=== PATIENT | male | born 1940 | race Caucasian/White ===

== ENCOUNTER 2018-10-27 12:24 | Day surgery (SDC) | payer MEDICARE ==
[~2018-10-27] VITALS: Ht 175 cm; Wt 88.7 kg
[~2018-10-27 12:24] MED LIST: ASPI325 PO; ASPI81CH PO; FINA5 PO; HYDACE5325; METO50ER PO; RAMI1.25 PO; RAMI5 PO; RAMIPRIL PO; SIMV80 PO
--- NOTE | 2018-10-27 13:19 | NUR ---
Ambulatory in Day Surgery History, Chart, Medications and Allergies reviewed before start of procedure.Patient confirms NPO status and agrees with scheduled surgery. Patient reports completing Chlorhexadine shower X2 prior to admission to hospital.Surgical site prepped with 2% Chlorhexidine cloth wipe.
--- NOTE | 2018-10-27 16:16 | NUR ---
10/27/18 1616 Lilibeth Gallego PT USED RESTROOM PRIOR TO COMING TO OR 4.
[2018-10-28 04:15] LABS: BASOPHILS ABSOLUTE AUTO 0.01 K/mm3 (0.00-0.23); BASOPHILS PERCENT AUTO 0 % (0-2); EOSINOPHILS PERCENT AUTO 0 % (0-6); Hemoglobin 12.8 g/dL (13.5-17.5); IMMATURE GRAN ABSOLUTE AUTO 0.05 K/mm3 (0.00-0.10); IMMATURE GRAN PERCENT AUTO 0 % (0-1); LYMPHOCYTES ABSOLUTE AUTO 0.62 K/mm3 (0.84-5.20); LYMPHOCYTES PERCENT AUTO 5 % (21-46); MONOCYTES ABSOLUTE AUTO 0.52 K/mm3 (0.16-1.47); MONOCYTES PERCENT AUTO 4 % (4-13); Mean Corpuscular HGB 33.3 pg (26.0-34.0); Mean Corpuscular HGB Conc 34.6 g/dL (31.5-36.5); Mean Corpuscular Volume 96 fL (80-100); Mean Platelet Volume 9.8 fL (9.1-12.4); NEUTROPHILS ABSOLUTE AUTO 11.66 K/mm3 (1.96-9.15); NEUTROPHILS PERCENT AUTO 91 % (41-73); Platelet Count 142 K/mm3 (150-400); RDW Coefficient Variation 11.3 % (11.7-14.2); RDW Standard Deviation 40.3 fL (35.1-46.3); Red Blood Cell Count 3.84 M/mm3 (4.30-5.90); White Blood Cell Count 12.86 K/mm3 (4.00-11.30)
[2018-10-28 04:35] LABS: Anion Gap 7 mmol/L (6-16); Blood Urea Nitrogen 28 mg/dL (8-24); Bun/Creatinine Ratio 25.2 (12.0-20.0); CO2, Blood 26 mmol/L (21-32); Chloride, Blood 104 mmol/L (98-108); Creatinine, Blood 1.11 mg/dL (0.60-1.20); Glomerular Filtration Rate >60 (60-); Glucose, Blood 184 mg/dL (70-99); Magnesium, Blood 1.8 mg/dL (1.6-2.4); Potassium, Blood 4.6 mmol/L (3.5-5.5); Sodium, Blood 137 mmol/L (136-145)
--- NOTE | 2018-10-28 07:51 | NUR ---
SUMMARY: POD [address] FERNANDEZ. VSS, AFEBRILE, ROOM AIR. TOLERATING REG DIET, VOIDING DARK YELLOW URINE. PT AMBULATES LENGTH OF HUYNH WITH FWW AND 1 ASSIST. MINIMAL PAIN WELL CONTROLLED WITH SCHEDULED MEDS AND 5MG ROXICONDE X3 THIS SHIFT. ANTICIPATE PT/OT TODAY AND PROBABLE DC HOME.
--- NOTE | 2018-10-28 13:15 | NUR ---
REPORT GIVEN TO Eugene WHO IS TAKING OVER CARE AT THIS TIME.
[2018-10-28] MEDS ORDERED: OXYC5 PO (16:35)
[2018-10-28] MEDS ORDERED: ASPI325EC PO (16:51)
--- NOTE | 2018-10-28 18:03 | NUR ---
DISCHARGE PT DISCHARGED HOME FROM UNIT AT APROX 1736. PT GIVEN WRITTEN AND VERBAL DISCHARGE INSTRUCTIONS AND VERBALIZED UNDERSTANDING OF THESE INSTRUCTIONS. IV REMOVED, PT TOLERATED WELL. WRITTEN RX FOR PAIN MEDICATIION GIVEN TO PT, COPY IN CHART. WHEELCHAIR TO CAR.
== END 2018-10-28 17:25 | disposition home or self-care (01) ==
LOC: ORSCMMR 12:24 → ORD 14:10 → ORSCMMR 14:10 → SURS 18:55 → ORSCMMR 10-28 17:25 → SURS 10-28 17:25
PROVIDERS: Orthopaedic Surgery
PROC: 0SRD069 Replacement of Left Knee Joint with Oxidized Zirconium on Polyethylene Synthetic Substitute, Cemented, Open Approach (ICD-10-PCS; principal; 2018-10-27 14:10)
DX: M17.12 Unilateral primary osteoarthritis, left knee (principal); I10 Essential (primary) hypertension; E78.00 Pure hypercholesterolemia, unspecified; Z79.82 Long term (current) use of aspirin; Z79.899 Other long term (current) drug therapy; Z87.891 Personal history of nicotine dependence
CPT/HCPCS: 36415; 73560-LT; 80048; 83735; 85025; 86850; 86900; 86901; 88300; 97110; 97116; 97162; 97530; C1713; C1776; J0171; J0690; J0735; J1100; J1885; J2250; J2405; J2704; J2795; J3010; J7120

== ENCOUNTER → 2019-11-30 | Outpatient (CLI) | payer MEDICARE ==
[~2019-11-30] MED LIST changes: +ASPI325EC PO; +OXYC5 PO
== END ==
LOC: LAB 17:32 → LAB SHORT 17:32
DX: L08.9 Local infection of the skin and subcutaneous tissue, unspecified (principal)
CPT/HCPCS: 87070; 87077; 87186; 87205

== ENCOUNTER → 2020-01-14 | Outpatient (CLI) | payer MEDICARE | LOC: PLD 12:15 → LAB SHORT 12:15 | DX: L72.0 Epidermal cyst (principal) | CPT/HCPCS: 88304 ==